=== PATIENT | female | born 1955 | race Caucasian/White ===

== ENCOUNTER → 2017-01-22 | Outpatient (CLI) | payer BC ==
[~2017-01-22] VITALS: Ht 162.6 cm; Wt 77.2 kg
[~2017-01-22] MED LIST: FOSAMAX70 MG PO; LORATADINE10 M3 PO; PRAVACHOL40 MG PO
== END | disposition home or self-care (01) ==
LOC: AMB 08:17
DX: Z12.11 Encounter for screening for malignant neoplasm of colon (principal); D12.2 Benign neoplasm of ascending colon; K62.1 Rectal polyp; E78.5 Hyperlipidemia, unspecified; K21.9 Gastro-esophageal reflux disease without esophagitis; M81.0 Age-related osteoporosis without current pathological fracture; F17.210 Nicotine dependence, cigarettes, uncomplicated; Z82.49 Family history of ischemic heart disease and other diseases of the circulatory system; Z83.511 Family history of glaucoma; Z80.0 Family history of malignant neoplasm of digestive organs
CPT/HCPCS: 88305